=== PATIENT | female | born 1935 | race Caucasian/White ===

== ENCOUNTER 2022-02-17 13:29 | Outpatient (CLI) | payer MEDICARE, BC | END 2022-02-17 13:30 | disposition home or self-care (01) | LOC: NAV RAD 13:29 | PROVIDERS: ATTEND Family Medicine | DX: M25.551 Pain in right hip (principal) | CPT/HCPCS: 72170 ==

== ENCOUNTER 2022-08-17 15:28 | Inpatient (IN) | payer MEDICARE, BC ==
[2022-08-17] MEDS ORDERED: HumaLOG 300 UNITS/3 ML VIAL SC PRN (19:05)
[2022-08-17] MEDS ORDERED: Glucagon 1 MG/ML KIT IM PRN (19:05)
[2022-08-17] MEDS ORDERED: Dextrose 50% Abboject 50 ML SYRINGE SLOW IVP PRN (19:05)
[2022-08-17] MEDS: Atorvastatin Calcium 10 MG TAB PO SCH (21:26)
[2022-08-17] MEDS: Gabapentin 100 MG CAP PO SCH (21:26)
[2022-08-17] MEDS: Aspirin 81 mg Enteric Coated Tablet PO SCH (21:26)
[2022-08-17] MEDS: Losartan Potassium 50 MG TAB PO SCH (21:26)
[2022-08-18] MEDS: traMADol HCl 50 MG TAB PO SCH ×4 (00:14→16:56)
[2022-08-18] MEDS: Acetaminophen 500 MG TAB PO SCH ×4 (00:15→16:57)
[2022-08-18] MEDS: HumaLOG 300 UNITS/3 ML VIAL SC PRN ×3 (06:02→16:58)
[2022-08-18 06:17] LABS: #Basophils 0.1 thou/uL (0.0-0.2); #Eosinphils 0.3 thou/uL (0.0-0.7); #Lymphocytes 1.7 thou/uL (1.20-3.40); #Neutrophils 10.1 thou/uL (1.40-6.50); %Basophils 0.4 % (0.0-1.0); %Eosinophils 2.4 % (0.0-10.0); %Lymphocytes 12.9 % (21.0-51.0); %Monocytes 7.8 % (0.0-10.0); %Neutrophils 76.6 % (42.0-75.0); Hemoglobin 9.7 g/dL (12.0-16.0); Mean Corpuscular HGB CONC 32.4 g/dL (32.0-36.0); Mean Corpuscular Hemoglobin 29.6 pg (27.0-31.0); Mean Corpuscular Volume 91.4 fl (78.0-98.0); Mean Platelet Volume 7.4 fL (7.4-10.4); Platelet Count 172 10x3/uL (130-400); RBC Distribution Width 13.8 % (11.5-14.5); Red Blood Cell (RBC) Count 3.29 mill/uL (4.20-5.40); White Blood Cell (WBC) Count 13.2 10x3/uL (4.8-10.8)
[2022-08-18 06:30] LABS: ALT (SGPT) Less than 7 U/L (8-55); AST (SGOT) 11 U/L (5-34); Albumin 3.3 g/dL (3.4-4.8); Alkaline Phosphatase 46 U/L (40-110); Anion Gap 12 mmol/L (10-20); BUN (Urea Nitrogen) 21 mg/dL (9.8-20.1); Bilirubin, Total 0.6 mg/dL (0.2-1.2); Calc. Creatinine Clearance 52 mL/min (70-130); Calcium 8.7 mg/dL (7.8-10.44); Carbon Dioxide 25 mmol/L (23-31); Chloride 103 mmol/L (98-107); Estimated GFR 67; Glucose 185 mg/dL (83-110); Potassium 4.5 mmol/L (3.5-5.1); Protein, Total 5.3 g/dL (5.8-8.1); Sodium 135 mmol/L (136-145)
[2022-08-18] MEDS: Spironolactone 25 MG TAB PO SCH (08:23)
[2022-08-18] MEDS: cloNIDine 0.1 MG TAB PO PRN (08:23)
[2022-08-18] MEDS: Hydrochlorothiazide 25 MG TAB PO SCH (08:23)
[2022-08-18] MEDS: Aspirin 81 mg Enteric Coated Tablet PO SCH ×2 (08:24→21:14)
[2022-08-18] MEDS: Gabapentin 100 MG CAP PO SCH ×3 (08:24→21:14)
[2022-08-18] MEDS: metFORMIN 500 MG TAB PO SCH ×2 (08:25→16:56)
[2022-08-18] MEDS ORDERED: Amlodipine 5 MG TAB PO SCH (09:00)
[2022-08-18] MEDS: Iron Polysaccharides Complex 150 MG CAP PO SCH ×2 (10:06→13:48)
[2022-08-18] MEDS ORDERED: Ibuprofen 400 MG TAB PO PRN (13:59)
[2022-08-18] MEDS: Ibuprofen 200 MG TAB PO PRN ×2 (15:13→21:11)
[2022-08-18] MEDS: Losartan Potassium 50 MG TAB PO SCH (21:13)
[2022-08-18] MEDS: Atorvastatin Calcium 10 MG TAB PO SCH (21:13)
[2022-08-19] MEDS: Senokot S 8.6-50 MG TAB PO PRN (00:16)
[2022-08-19] MEDS: traMADol HCl 50 MG TAB PO SCH ×4 (00:16→17:29)
[2022-08-19] MEDS: Acetaminophen 500 MG TAB PO SCH ×4 (00:17→17:30)
[2022-08-19] MEDS: metFORMIN 500 MG TAB PO SCH ×2 (08:50→17:30)
[2022-08-19] MEDS: Aspirin 81 mg Enteric Coated Tablet PO SCH ×2 (08:51→21:01)
[2022-08-19] MEDS: Hydrochlorothiazide 25 MG TAB PO SCH (08:51)
[2022-08-19] MEDS: Spironolactone 25 MG TAB PO SCH (08:51)
[2022-08-19] MEDS: Amlodipine 10 MG TAB PO SCH (08:51)
[2022-08-19] MEDS: Gabapentin 100 MG CAP PO SCH ×3 (08:51→20:59)
[2022-08-19] MEDS: Iron Polysaccharides Complex 150 MG CAP PO SCH (08:51)
[2022-08-19] MEDS: Bisacodyl 5 MG TAB PO PRN (08:57)
[2022-08-19] MEDS: Ibuprofen 200 MG TAB PO PRN (10:32)
[2022-08-19] MEDS: cloNIDine 0.1 MG TAB PO PRN (10:59)
[2022-08-19] MEDS: HumaLOG 300 UNITS/3 ML VIAL SC PRN (12:15)
[2022-08-19] MEDS: Cyclobenzaprine 10 MG TAB PO PRN (14:07)
[2022-08-19] MEDS: Atorvastatin Calcium 10 MG TAB PO SCH (20:59)
[2022-08-19] MEDS: Losartan Potassium 50 MG TAB PO SCH (21:01)
[2022-08-20] MEDS: Acetaminophen 500 MG TAB PO SCH ×4 (00:23→17:24)
[2022-08-20] MEDS: traMADol HCl 50 MG TAB PO SCH ×4 (00:24→17:24)
[2022-08-20] MEDS: Ibuprofen 200 MG TAB PO PRN ×2 (07:27→15:12)
[2022-08-20] MEDS: Gabapentin 100 MG CAP PO SCH ×3 (08:39→21:31)
[2022-08-20] MEDS: Iron Polysaccharides Complex 150 MG CAP PO SCH (08:39)
[2022-08-20] MEDS: Amlodipine 10 MG TAB PO SCH (08:40)
[2022-08-20] MEDS: metFORMIN 500 MG TAB PO SCH ×2 (08:40→17:25)
[2022-08-20] MEDS: Aspirin 81 mg Enteric Coated Tablet PO SCH ×2 (08:40→21:30)
[2022-08-20] MEDS: Hydrochlorothiazide 25 MG TAB PO SCH (08:40)
[2022-08-20] MEDS: Spironolactone 25 MG TAB PO SCH (08:40)
[2022-08-20] MEDS: HumaLOG 300 UNITS/3 ML VIAL SC PRN (11:06)
[2022-08-20] MEDS: Atorvastatin Calcium 10 MG TAB PO SCH (21:30)
[2022-08-20] MEDS: Losartan Potassium 50 MG TAB PO SCH (21:30)
[2022-08-21] MEDS: traMADol HCl 50 MG TAB PO SCH ×5 (01:21→23:50)
[2022-08-21] MEDS: Acetaminophen 500 MG TAB PO SCH ×5 (01:22→23:49)
[2022-08-21] MEDS: Spironolactone 25 MG TAB PO SCH (08:26)
[2022-08-21] MEDS: metFORMIN 500 MG TAB PO SCH ×2 (08:26→17:05)
[2022-08-21] MEDS: Hydrochlorothiazide 25 MG TAB PO SCH (08:26)
[2022-08-21] MEDS: Aspirin 81 mg Enteric Coated Tablet PO SCH ×2 (08:26→20:58)
[2022-08-21] MEDS: Amlodipine 10 MG TAB PO SCH (08:26)
[2022-08-21] MEDS: Gabapentin 100 MG CAP PO SCH ×3 (08:26→20:58)
[2022-08-21] MEDS: Iron Polysaccharides Complex 150 MG CAP PO SCH (08:26)
[2022-08-21] MEDS: HumaLOG 300 UNITS/3 ML VIAL SC PRN ×2 (11:23→16:34)
[2022-08-21] MEDS: Senokot S 8.6-50 MG TAB PO PRN (13:22)
[2022-08-21] MEDS: Ondansetron ODT 4 MG TAB SL PRN (14:12)
[2022-08-21] MEDS: Losartan Potassium 50 MG TAB PO SCH (20:57)
[2022-08-21] MEDS: Atorvastatin Calcium 10 MG TAB PO SCH (20:58)
[2022-08-22] MEDS: Acetaminophen 500 MG TAB PO SCH ×4 (05:31→23:45)
[2022-08-22] MEDS: traMADol HCl 50 MG TAB PO SCH ×4 (05:32→23:46)
[2022-08-22] MEDS ORDERED: Alendronate Sodium 70 mg Tablet PO SCH (06:00)
[2022-08-22] MEDS: Amlodipine 10 MG TAB PO SCH (09:58)
[2022-08-22] MEDS: Gabapentin 100 MG CAP PO SCH ×3 (09:59→20:47)
[2022-08-22] MEDS: metFORMIN 500 MG TAB PO SCH ×2 (09:59→17:27)
[2022-08-22] MEDS: Spironolactone 25 MG TAB PO SCH (10:00)
[2022-08-22] MEDS: Hydrochlorothiazide 25 MG TAB PO SCH (10:00)
[2022-08-22] MEDS: Aspirin 81 mg Enteric Coated Tablet PO SCH ×2 (10:00→20:49)
[2022-08-22] MEDS: Iron Polysaccharides Complex 150 MG CAP PO SCH (10:00)
[2022-08-22] MEDS: Ibuprofen 200 MG TAB PO PRN (10:07)
[2022-08-22] MEDS: Losartan Potassium 50 MG TAB PO SCH (20:47)
[2022-08-22] MEDS: Atorvastatin Calcium 10 MG TAB PO SCH (20:49)
[2022-08-23 05:25] LABS: #Basophils 0.1 thou/uL (0.0-0.2); #Eosinphils 0.3 thou/uL (0.0-0.7); #Lymphocytes 1.9 thou/uL (1.20-3.40); #Neutrophils 4.9 thou/uL (1.40-6.50); %Eosinophils 4.2 % (0.0-10.0); %Lymphocytes 23.1 % (21.0-51.0); %Monocytes 12.4 % (0.0-10.0); %Neutrophils 59.3 % (42.0-75.0); Mean Corpuscular HGB CONC 31.8 g/dL (32.0-36.0); Mean Corpuscular Volume 94.4 fl (78.0-98.0); Platelet Count 228 10x3/uL (130-400); RBC Distribution Width 15.8 % (11.5-14.5); Red Blood Cell (RBC) Count 2.98 mill/uL (4.20-5.40); White Blood Cell (WBC) Count 8.2 10x3/uL (4.8-10.8)
[2022-08-23 05:35] LABS: Anion Gap 14 mmol/L (10-20); BUN (Urea Nitrogen) 44 mg/dL (9.8-20.1); Calc. Creatinine Clearance 37 mL/min (70-130); Calcium 9.2 mg/dL (7.8-10.44); Carbon Dioxide 22 mmol/L (23-31); Chloride 105 mmol/L (98-107); Estimated GFR 44; Glucose 92 mg/dL (83-110); Potassium 5.1 mmol/L (3.5-5.1); Sodium 136 mmol/L (136-145)
[2022-08-23] MEDS: Acetaminophen 500 MG TAB PO SCH ×3 (05:39→17:39)
[2022-08-23] MEDS: traMADol HCl 50 MG TAB PO SCH ×3 (05:39→17:38)
[2022-08-23] MEDS: Iron Polysaccharides Complex 150 MG CAP PO SCH (08:45)
[2022-08-23] MEDS: Gabapentin 100 MG CAP PO SCH ×3 (08:45→21:28)
[2022-08-23] MEDS: metFORMIN 500 MG TAB PO SCH ×2 (08:45→17:39)
[2022-08-23] MEDS: Amlodipine 10 MG TAB PO SCH (08:47)
[2022-08-23] MEDS: Hydrochlorothiazide 25 MG TAB PO SCH (08:47)
[2022-08-23] MEDS: Spironolactone 25 MG TAB PO SCH (08:47)
[2022-08-23] MEDS: Aspirin 81 mg Enteric Coated Tablet PO SCH ×2 (08:47→21:28)
[2022-08-23] MEDS: Ibuprofen 200 MG TAB PO PRN (10:50)
[2022-08-23] MEDS: HumaLOG 300 UNITS/3 ML VIAL SC PRN (11:52)
[2022-08-23] MEDS: Senokot S 8.6-50 MG TAB PO PRN (11:57)
[2022-08-23] MEDS: Cyclobenzaprine 10 MG TAB PO PRN (14:33)
[2022-08-23] MEDS: Losartan Potassium 50 MG TAB PO SCH (21:27)
[2022-08-23] MEDS: Atorvastatin Calcium 10 MG TAB PO SCH (21:28)
[2022-08-24] MEDS: Acetaminophen 500 MG TAB PO SCH ×4 (00:12→17:22)
[2022-08-24] MEDS: traMADol HCl 50 MG TAB PO SCH ×4 (00:13→17:20)
[2022-08-24] MEDS: Iron Polysaccharides Complex 150 MG CAP PO SCH (08:27)
[2022-08-24] MEDS: Gabapentin 100 MG CAP PO SCH ×3 (08:27→20:52)
[2022-08-24] MEDS: metFORMIN 500 MG TAB PO SCH ×2 (08:27→17:25)
[2022-08-24] MEDS: Amlodipine 10 MG TAB PO SCH (08:29)
[2022-08-24] MEDS: Aspirin 81 mg Enteric Coated Tablet PO SCH ×2 (08:29→20:51)
[2022-08-24] MEDS: Hydrochlorothiazide 25 MG TAB PO SCH (08:29)
[2022-08-24] MEDS: Spironolactone 25 MG TAB PO SCH (08:29)
[2022-08-24] MEDS: Ibuprofen 200 MG TAB PO PRN (08:32)
[2022-08-24] MEDS: Ondansetron ODT 4 MG TAB SL PRN (10:57)
[2022-08-24] MEDS: HumaLOG 300 UNITS/3 ML VIAL SC PRN (12:14)
[2022-08-24] MEDS: Cyclobenzaprine 10 MG TAB PO PRN (15:53)
[2022-08-24] MEDS: Losartan Potassium 50 MG TAB PO SCH (20:51)
[2022-08-24] MEDS: Atorvastatin Calcium 10 MG TAB PO SCH (20:51)
[2022-08-25] MEDS: Acetaminophen 500 MG TAB PO SCH ×2 (00:14→06:24)
[2022-08-25] MEDS: traMADol HCl 50 MG TAB PO SCH ×5 (00:14→23:43)
[2022-08-25] MEDS: Ondansetron ODT 4 MG TAB SL PRN (08:10)
[2022-08-25] MEDS: Spironolactone 25 MG TAB PO SCH (08:27)
[2022-08-25] MEDS: Iron Polysaccharides Complex 150 MG CAP PO SCH (08:28)
[2022-08-25] MEDS: metFORMIN 500 MG TAB PO SCH ×2 (08:28→16:16)
[2022-08-25] MEDS: Hydrochlorothiazide 25 MG TAB PO SCH (08:28)
[2022-08-25] MEDS: Aspirin 81 mg Enteric Coated Tablet PO SCH ×2 (08:28→20:27)
[2022-08-25] MEDS: Amlodipine 10 MG TAB PO SCH (08:28)
[2022-08-25] MEDS: Gabapentin 100 MG CAP PO SCH ×3 (08:29→20:27)
[2022-08-25] MEDS: HYDROcodone/Acetaminophen 5/325 mg Tablet PO PRN (08:35)
[2022-08-25] MEDS: Ibuprofen 200 MG TAB PO PRN (11:04)
[2022-08-25] MEDS: Cyclobenzaprine 10 MG TAB PO PRN (11:05)
[2022-08-25] MEDS: HumaLOG 300 UNITS/3 ML VIAL SC PRN (12:10)
[2022-08-25] MEDS: Atorvastatin Calcium 10 MG TAB PO SCH (20:27)
[2022-08-25] MEDS: Losartan Potassium 50 MG TAB PO SCH (20:27)
[2022-08-26] MEDS: traMADol HCl 50 MG TAB PO SCH ×4 (05:41→23:40)
[2022-08-26] MEDS: Aspirin 81 mg Enteric Coated Tablet PO SCH ×2 (09:11→20:21)
[2022-08-26] MEDS: Spironolactone 25 MG TAB PO SCH (09:11)
[2022-08-26] MEDS: Amlodipine 10 MG TAB PO SCH (09:12)
[2022-08-26] MEDS: Iron Polysaccharides Complex 150 MG CAP PO SCH (09:12)
[2022-08-26] MEDS: metFORMIN 500 MG TAB PO SCH ×2 (09:12→17:02)
[2022-08-26] MEDS: Gabapentin 100 MG CAP PO SCH ×3 (09:13→20:19)
[2022-08-26] MEDS: Hydrochlorothiazide 25 MG TAB PO SCH (09:13)
[2022-08-26] MEDS: Ibuprofen 200 MG TAB PO PRN (09:16)
[2022-08-26] MEDS: HYDROcodone/Acetaminophen 5/325 mg Tablet PO PRN ×2 (09:30→15:16)
[2022-08-26] MEDS: Losartan Potassium 50 MG TAB PO SCH (20:19)
[2022-08-26] MEDS: Atorvastatin Calcium 10 MG TAB PO SCH (20:19)
[2022-08-27] MEDS: traMADol HCl 50 MG TAB PO SCH ×4 (05:29→23:39)
[2022-08-27] MEDS: Aspirin 81 mg Enteric Coated Tablet PO SCH ×2 (07:43→20:30)
[2022-08-27] MEDS: Hydrochlorothiazide 25 MG TAB PO SCH (07:43)
[2022-08-27] MEDS: Spironolactone 25 MG TAB PO SCH (07:43)
[2022-08-27] MEDS: Gabapentin 100 MG CAP PO SCH ×3 (07:44→20:30)
[2022-08-27] MEDS: Amlodipine 10 MG TAB PO SCH (07:44)
[2022-08-27] MEDS: Iron Polysaccharides Complex 150 MG CAP PO SCH (07:45)
[2022-08-27] MEDS: metFORMIN 500 MG TAB PO SCH ×2 (07:47→17:19)
[2022-08-27] MEDS: HumaLOG 300 UNITS/3 ML VIAL SC PRN (11:56)
[2022-08-27] MEDS: Cyclobenzaprine 10 MG TAB PO PRN (13:27)
[2022-08-27] MEDS: HYDROcodone/Acetaminophen 5/325 mg Tablet PO PRN (14:23)
[2022-08-27] MEDS: Atorvastatin Calcium 10 MG TAB PO SCH (20:30)
[2022-08-27] MEDS: Losartan Potassium 50 MG TAB PO SCH (20:30)
[2022-08-28] MEDS: traMADol HCl 50 MG TAB PO SCH ×4 (05:31→23:48)
[2022-08-28] MEDS: Iron Polysaccharides Complex 150 MG CAP PO SCH (07:27)
[2022-08-28] MEDS: Spironolactone 25 MG TAB PO SCH (07:28)
[2022-08-28] MEDS: metFORMIN 500 MG TAB PO SCH ×2 (07:28→17:30)
[2022-08-28] MEDS: Aspirin 81 mg Enteric Coated Tablet PO SCH ×2 (07:28→20:30)
[2022-08-28] MEDS: Amlodipine 10 MG TAB PO SCH (07:30)
[2022-08-28] MEDS: Gabapentin 100 MG CAP PO SCH ×3 (07:31→20:30)
[2022-08-28] MEDS: Hydrochlorothiazide 25 MG TAB PO SCH (07:31)
[2022-08-28] MEDS: HYDROcodone/Acetaminophen 5/325 mg Tablet PO PRN (13:20)
[2022-08-28] MEDS: Cyclobenzaprine 10 MG TAB PO PRN (14:37)
[2022-08-28] MEDS: Losartan Potassium 50 MG TAB PO SCH (20:30)
[2022-08-28] MEDS: Atorvastatin Calcium 10 MG TAB PO SCH (20:30)
[2022-08-29] MEDS: traMADol HCl 50 MG TAB PO SCH ×4 (05:14→23:59)
[2022-08-29] MEDS: Senokot S 8.6-50 MG TAB PO PRN (08:12)
[2022-08-29] MEDS: Aspirin 81 mg Enteric Coated Tablet PO SCH ×2 (08:13→20:15)
[2022-08-29] MEDS: Iron Polysaccharides Complex 150 MG CAP PO SCH (08:13)
[2022-08-29] MEDS: Gabapentin 100 MG CAP PO SCH ×3 (08:13→20:17)
[2022-08-29] MEDS: Hydrochlorothiazide 25 MG TAB PO SCH (08:14)
[2022-08-29] MEDS: Spironolactone 25 MG TAB PO SCH (08:14)
[2022-08-29] MEDS: metFORMIN 500 MG TAB PO SCH ×2 (08:14→17:17)
[2022-08-29] MEDS: Amlodipine 10 MG TAB PO SCH (08:14)
[2022-08-29] MEDS: Ibuprofen 200 MG TAB PO PRN (14:59)
[2022-08-29] MEDS: Cyclobenzaprine 10 MG TAB PO PRN (14:59)
[2022-08-29] MEDS: HYDROcodone/Acetaminophen 5/325 mg Tablet PO PRN (20:15)
[2022-08-29] MEDS: Losartan Potassium 50 MG TAB PO SCH (20:15)
[2022-08-29] MEDS: Atorvastatin Calcium 10 MG TAB PO SCH (20:15)
[2022-08-30] MEDS: traMADol HCl 50 MG TAB PO SCH ×3 (07:42→17:05)
[2022-08-30] MEDS: HYDROcodone/Acetaminophen 5/325 mg Tablet PO PRN ×2 (07:42→14:51)
[2022-08-30] MEDS: metFORMIN 500 MG TAB PO SCH ×2 (07:44→17:05)
[2022-08-30] MEDS: Aspirin 81 mg Enteric Coated Tablet PO SCH ×2 (07:45→20:44)
[2022-08-30] MEDS: Spironolactone 25 MG TAB PO SCH (07:45)
[2022-08-30] MEDS: Gabapentin 100 MG CAP PO SCH ×3 (07:45→20:42)
[2022-08-30] MEDS: Iron Polysaccharides Complex 150 MG CAP PO SCH (07:45)
[2022-08-30] MEDS: Senokot S 8.6-50 MG TAB PO PRN ×2 (07:45→20:46)
[2022-08-30] MEDS: Hydrochlorothiazide 25 MG TAB PO SCH (07:45)
[2022-08-30] MEDS: Amlodipine 10 MG TAB PO SCH (07:50)
[2022-08-30] MEDS: Cyclobenzaprine 10 MG TAB PO PRN (15:39)
[2022-08-30] MEDS: Losartan Potassium 50 MG TAB PO SCH (20:43)
[2022-08-30] MEDS: Atorvastatin Calcium 10 MG TAB PO SCH (20:44)
[2022-08-31] MEDS: traMADol HCl 50 MG TAB PO SCH ×4 (00:02→17:25)
[2022-08-31 06:04] LABS: #Basophils 0.1 thou/uL (0.0-0.2); #Eosinphils 0.3 thou/uL (0.0-0.7); #Lymphocytes 1.9 thou/uL (1.20-3.40); #Monocytes 0.9 thou/uL (0.11-0.59); #Neutrophils 5.2 thou/uL (1.40-6.50); %Eosinophils 3.5 % (0.0-10.0); %Lymphocytes 22.4 % (21.0-51.0); %Monocytes 10.7 % (0.0-10.0); %Neutrophils 62.4 % (42.0-75.0); Hemoglobin 9.7 g/dL (12.0-16.0); Mean Corpuscular Hemoglobin 30.4 pg (27.0-31.0); Mean Corpuscular Volume 95.2 fl (78.0-98.0); Mean Platelet Volume 6.3 fL (7.4-10.4); Platelet Count 384 10x3/uL (130-400); Red Blood Cell (RBC) Count 3.18 mill/uL (4.20-5.40); White Blood Cell (WBC) Count 8.3 10x3/uL (4.8-10.8)
[2022-08-31 06:19] LABS: Anion Gap 14 mmol/L (10-20); BUN (Urea Nitrogen) 57 mg/dL (9.8-20.1); Calc. Creatinine Clearance 29 mL/min (70-130); Calcium 9.9 mg/dL (7.8-10.44); Carbon Dioxide 22 mmol/L (23-31); Chloride 102 mmol/L (98-107); Estimated GFR 33; Glucose 89 mg/dL (83-110); Potassium 5.7 mmol/L (3.5-5.1); Sodium 132 mmol/L (136-145)
[2022-08-31] MEDS: Spironolactone 25 MG TAB PO SCH (08:39)
[2022-08-31] MEDS: Gabapentin 100 MG CAP PO SCH ×3 (08:40→20:29)
[2022-08-31] MEDS: Iron Polysaccharides Complex 150 MG CAP PO SCH (08:40)
[2022-08-31] MEDS: Hydrochlorothiazide 25 MG TAB PO SCH (08:40)
[2022-08-31] MEDS: metFORMIN 500 MG TAB PO SCH ×2 (08:40→17:25)
[2022-08-31] MEDS: Amlodipine 10 MG TAB PO SCH (08:41)
[2022-08-31] MEDS: Aspirin 81 mg Enteric Coated Tablet PO SCH ×2 (08:41→20:29)
[2022-08-31] MEDS: Bisacodyl 10 MG SUPP PR PRN (11:15)
[2022-08-31] MEDS: HYDROcodone/Acetaminophen 5/325 mg Tablet PO PRN (12:11)
[2022-08-31] MEDS: Cyclobenzaprine 10 MG TAB PO PRN (15:11)
[2022-08-31] MEDS: Ibuprofen 200 MG TAB PO PRN (15:11)
[2022-08-31] MEDS: Atorvastatin Calcium 10 MG TAB PO SCH (20:29)
[2022-08-31] MEDS: Losartan Potassium 50 MG TAB PO SCH (20:29)
[2022-09-01] MEDS: traMADol HCl 50 MG TAB PO SCH ×5 (00:52→23:33)
[2022-09-01 06:10] LABS: Anion Gap 13 mmol/L (10-20); BUN (Urea Nitrogen) 60 mg/dL (9.8-20.1); Calc. Creatinine Clearance 30 mL/min (70-130); Calcium 9.4 mg/dL (7.8-10.44); Carbon Dioxide 22 mmol/L (23-31); Chloride 102 mmol/L (98-107); Estimated GFR 35; Sodium 131 mmol/L (136-145)
[2022-09-01 06:13] LABS: Glucose 51 mg/dL (83-110)
[2022-09-01] MEDS: HYDROcodone/Acetaminophen 5/325 mg Tablet PO PRN ×2 (08:18→15:04)
[2022-09-01] MEDS: metFORMIN 500 MG TAB PO SCH ×2 (08:19→16:59)
[2022-09-01] MEDS: Spironolactone 25 MG TAB PO SCH (08:19)
[2022-09-01] MEDS: Aspirin 81 mg Enteric Coated Tablet PO SCH ×2 (08:19→20:46)
[2022-09-01] MEDS: Iron Polysaccharides Complex 150 MG CAP PO SCH (08:19)
[2022-09-01] MEDS: Amlodipine 10 MG TAB PO SCH (08:20)
[2022-09-01] MEDS: Hydrochlorothiazide 25 MG TAB PO SCH (08:20)
[2022-09-01] MEDS: Gabapentin 100 MG CAP PO SCH ×3 (08:20→20:46)
[2022-09-01] MEDS: Ondansetron ODT 4 MG TAB SL PRN (17:59)
[2022-09-01] MEDS: Atorvastatin Calcium 10 MG TAB PO SCH (20:46)
[2022-09-01] MEDS: Losartan Potassium 50 MG TAB PO SCH (20:46)
[2022-09-02] MEDS: traMADol HCl 50 MG TAB PO SCH ×4 (05:30→23:54)
[2022-09-02 06:03] LABS: Anion Gap 12 mmol/L (10-20); BUN (Urea Nitrogen) 53 mg/dL (9.8-20.1); Calc. Creatinine Clearance 35 mL/min (70-130); Calcium 9.3 mg/dL (7.8-10.44); Carbon Dioxide 25 mmol/L (23-31); Chloride 102 mmol/L (98-107); Estimated GFR 43; Glucose 72 mg/dL (83-110); Potassium 5.3 mmol/L (3.5-5.1); Sodium 134 mmol/L (136-145)
[2022-09-02] MEDS: metFORMIN 500 MG TAB PO SCH ×2 (07:52→17:31)
[2022-09-02] MEDS: Amlodipine 10 MG TAB PO SCH (07:52)
[2022-09-02] MEDS: Gabapentin 100 MG CAP PO SCH ×3 (07:52→20:52)
[2022-09-02] MEDS: Hydrochlorothiazide 25 MG TAB PO SCH (07:52)
[2022-09-02] MEDS: Spironolactone 25 MG TAB PO SCH (07:54)
[2022-09-02] MEDS: Iron Polysaccharides Complex 150 MG CAP PO SCH (07:54)
[2022-09-02] MEDS: Aspirin 81 mg Enteric Coated Tablet PO SCH ×2 (07:54→20:52)
[2022-09-02] MEDS: HYDROcodone/Acetaminophen 5/325 mg Tablet PO PRN (10:06)
[2022-09-02] MEDS: HumaLOG 300 UNITS/3 ML VIAL SC PRN (11:37)
[2022-09-02] MEDS: Losartan Potassium 50 MG TAB PO SCH (20:52)
[2022-09-02] MEDS: Atorvastatin Calcium 10 MG TAB PO SCH (20:53)
[2022-09-03 05:52] LABS: Anion Gap 13 mmol/L (10-20); BUN (Urea Nitrogen) 48 mg/dL (9.8-20.1); Calc. Creatinine Clearance 37 mL/min (70-130); Calcium 9.3 mg/dL (7.8-10.44); Carbon Dioxide 26 mmol/L (23-31); Chloride 101 mmol/L (98-107); Estimated GFR 45; Glucose 103 mg/dL (83-110); Potassium 4.7 mmol/L (3.5-5.1); Sodium 135 mmol/L (136-145)
[2022-09-03] MEDS: traMADol HCl 50 MG TAB PO SCH ×3 (06:05→17:47)
[2022-09-03] MEDS: metFORMIN 500 MG TAB PO SCH ×2 (08:37→17:47)
[2022-09-03] MEDS: Amlodipine 10 MG TAB PO SCH (08:37)
[2022-09-03] MEDS: Aspirin 81 mg Enteric Coated Tablet PO SCH ×2 (08:38→20:35)
[2022-09-03] MEDS: Gabapentin 100 MG CAP PO SCH ×3 (08:38→20:35)
[2022-09-03] MEDS: Hydrochlorothiazide 25 MG TAB PO SCH (08:38)
[2022-09-03] MEDS: Iron Polysaccharides Complex 150 MG CAP PO SCH (08:38)
[2022-09-03] MEDS: Spironolactone 25 MG TAB PO SCH (08:38)
[2022-09-03] MEDS: HumaLOG 300 UNITS/3 ML VIAL SC PRN (11:47)
[2022-09-03] MEDS: Ondansetron ODT 4 MG TAB SL PRN (17:00)
[2022-09-03] MEDS: Losartan Potassium 50 MG TAB PO SCH (20:35)
[2022-09-03] MEDS: Atorvastatin Calcium 10 MG TAB PO SCH (20:36)
[2022-09-03] MEDS: Senokot S 8.6-50 MG TAB PO PRN (20:36)
[2022-09-04] MEDS: traMADol HCl 50 MG TAB PO SCH ×4 (05:23→17:34)
[2022-09-04] MEDS: Gabapentin 100 MG CAP PO SCH ×3 (08:14→20:42)
[2022-09-04] MEDS: Spironolactone 25 MG TAB PO SCH (08:14)
[2022-09-04] MEDS: metFORMIN 500 MG TAB PO SCH ×2 (08:14→17:35)
[2022-09-04] MEDS: Iron Polysaccharides Complex 150 MG CAP PO SCH (08:14)
[2022-09-04] MEDS: Aspirin 81 mg Enteric Coated Tablet PO SCH ×2 (08:15→20:43)
[2022-09-04] MEDS: Hydrochlorothiazide 25 MG TAB PO SCH (08:15)
[2022-09-04] MEDS: Amlodipine 10 MG TAB PO SCH (08:15)
[2022-09-04] MEDS: HumaLOG 300 UNITS/3 ML VIAL SC PRN (11:48)
[2022-09-04] MEDS: Bisacodyl 5 MG TAB PO PRN (13:42)
[2022-09-04] MEDS: Ondansetron ODT 4 MG TAB SL PRN (17:08)
[2022-09-04] MEDS: Losartan Potassium 50 MG TAB PO SCH (20:42)
[2022-09-04] MEDS: Atorvastatin Calcium 10 MG TAB PO SCH (20:43)
[2022-09-05] MEDS: traMADol HCl 50 MG TAB PO SCH ×4 (00:23→17:13)
[2022-09-05] MEDS: Bisacodyl 10 MG SUPP PR PRN (05:20)
[2022-09-05] MEDS: Spironolactone 25 MG TAB PO SCH (08:46)
[2022-09-05] MEDS: Gabapentin 100 MG CAP PO SCH ×3 (08:46→21:32)
[2022-09-05] MEDS: Hydrochlorothiazide 25 MG TAB PO SCH (08:46)
[2022-09-05] MEDS: metFORMIN 500 MG TAB PO SCH ×2 (08:47→17:13)
[2022-09-05] MEDS: Aspirin 81 mg Enteric Coated Tablet PO SCH ×2 (08:47→21:33)
[2022-09-05] MEDS: Amlodipine 10 MG TAB PO SCH (08:47)
[2022-09-05] MEDS: Iron Polysaccharides Complex 150 MG CAP PO SCH (08:47)
[2022-09-05] MEDS: Ondansetron ODT 4 MG TAB SL PRN (10:54)
[2022-09-05] MEDS: HumaLOG 300 UNITS/3 ML VIAL SC PRN ×2 (10:56→16:45)
[2022-09-05] MEDS: Atorvastatin Calcium 10 MG TAB PO SCH (21:33)
[2022-09-05] MEDS: Losartan Potassium 50 MG TAB PO SCH (21:33)
[2022-09-05] MEDS: Docusate 100 MG CAP PO SCH (21:34)
[2022-09-06] MEDS: traMADol HCl 50 MG TAB PO SCH ×6 (00:33→23:59)
[2022-09-06 05:28] LABS: #Basophils 0.1 thou/uL (0.0-0.2); #Eosinphils 0.3 thou/uL (0.0-0.7); #Lymphocytes 2.3 thou/uL (1.20-3.40); #Monocytes 0.8 thou/uL (0.11-0.59); #Neutrophils 3.4 thou/uL (1.40-6.50); %Basophils 1.3 % (0.0-1.0); %Lymphocytes 33.8 % (21.0-51.0); %Monocytes 11.1 % (0.0-10.0); %Neutrophils 48.8 % (42.0-75.0); Hemoglobin 8.6 g/dL (12.0-16.0); Mean Corpuscular HGB CONC 32.6 g/dL (32.0-36.0); Mean Corpuscular Hemoglobin 30.6 pg (27.0-31.0); Mean Platelet Volume 7.2 fL (7.4-10.4); Platelet Count 308 10x3/uL (130-400); RBC Distribution Width 15.1 % (11.5-14.5); Red Blood Cell (RBC) Count 2.82 mill/uL (4.20-5.40); White Blood Cell (WBC) Count 6.9 10x3/uL (4.8-10.8)
[2022-09-06 05:44] LABS: Anion Gap 12 mmol/L (10-20); BUN (Urea Nitrogen) 41 mg/dL (9.8-20.1); Calc. Creatinine Clearance 29 mL/min (70-130); Calcium 9.4 mg/dL (7.8-10.44); Carbon Dioxide 27 mmol/L (23-31); Chloride 99 mmol/L (98-107); Estimated GFR 35; Glucose 89 mg/dL (83-110); Potassium 4.9 mmol/L (3.5-5.1); Sodium 133 mmol/L (136-145)
[2022-09-06] MEDS: Aspirin 81 mg Enteric Coated Tablet PO SCH ×2 (09:36→20:32)
[2022-09-06] MEDS: Amlodipine 10 MG TAB PO SCH (09:36)
[2022-09-06] MEDS: Iron Polysaccharides Complex 150 MG CAP PO SCH (09:36)
[2022-09-06] MEDS: Hydrochlorothiazide 25 MG TAB PO SCH (09:37)
[2022-09-06] MEDS: metFORMIN 500 MG TAB PO SCH ×2 (09:37→16:10)
[2022-09-06] MEDS: Spironolactone 25 MG TAB PO SCH (09:37)
[2022-09-06] MEDS: Docusate 100 MG CAP PO SCH ×2 (09:37→20:33)
[2022-09-06] MEDS: Gabapentin 100 MG CAP PO SCH ×3 (09:37→20:32)
[2022-09-06] MEDS: HumaLOG 300 UNITS/3 ML VIAL SC PRN ×2 (12:26→16:19)
[2022-09-06] MEDS: Ondansetron ODT 4 MG TAB SL PRN (16:14)
[2022-09-06] MEDS ORDERED: EPOETIN ALFA-EPBX (NON-ESRD) 40,000 UNITS/ML VIAL SC SCH (17:00)
[2022-09-06] MEDS ORDERED: Epoetin 40,000 UNITS/ML VIAL SC SCH (17:00)
[2022-09-06] MEDS: Atorvastatin Calcium 10 MG TAB PO SCH (20:33)
[2022-09-06] MEDS: Losartan Potassium 50 MG TAB PO SCH (20:33)
[2022-09-07] MEDS: traMADol HCl 50 MG TAB PO SCH ×3 (05:22→18:34)
[2022-09-07] MEDS: Senokot S 8.6-50 MG TAB PO PRN (10:11)
[2022-09-07] MEDS: Hydrochlorothiazide 25 MG TAB PO SCH (10:11)
[2022-09-07] MEDS: Docusate 100 MG CAP PO SCH ×2 (10:12→20:28)
[2022-09-07] MEDS: Aspirin 81 mg Enteric Coated Tablet PO SCH ×2 (10:12→20:29)
[2022-09-07] MEDS: Amlodipine 10 MG TAB PO SCH (10:12)
[2022-09-07] MEDS: Gabapentin 100 MG CAP PO SCH ×3 (10:14→20:29)
[2022-09-07] MEDS: Spironolactone 25 MG TAB PO SCH (10:22)
[2022-09-07] MEDS: metFORMIN 500 MG TAB PO SCH ×2 (10:22→18:34)
[2022-09-07] MEDS: Iron Polysaccharides Complex 150 MG CAP PO SCH (10:22)
[2022-09-07] MEDS: HumaLOG 300 UNITS/3 ML VIAL SC PRN (11:54)
[2022-09-07] MEDS: Ondansetron ODT 4 MG TAB SL PRN (14:09)
[2022-09-07] MEDS: Losartan Potassium 50 MG TAB PO SCH (20:28)
[2022-09-07] MEDS: Atorvastatin Calcium 10 MG TAB PO SCH (20:29)
[2022-09-08] MEDS: Ibuprofen 200 MG TAB PO PRN (03:02)
[2022-09-08] MEDS: Bisacodyl 5 MG TAB PO PRN (03:02)
[2022-09-08] MEDS: traMADol HCl 50 MG TAB PO SCH ×5 (06:03→23:53)
[2022-09-08] MEDS: Hydrochlorothiazide 25 MG TAB PO SCH (09:27)
[2022-09-08] MEDS: Spironolactone 25 MG TAB PO SCH (09:27)
[2022-09-08] MEDS: Amlodipine 10 MG TAB PO SCH (09:27)
[2022-09-08] MEDS: Iron Polysaccharides Complex 150 MG CAP PO SCH (09:28)
[2022-09-08] MEDS: Gabapentin 100 MG CAP PO SCH ×3 (09:28→20:10)
[2022-09-08] MEDS: Docusate 100 MG CAP PO SCH ×2 (09:29→20:09)
[2022-09-08] MEDS: metFORMIN 500 MG TAB PO SCH ×2 (09:29→16:23)
[2022-09-08] MEDS: Aspirin 81 mg Enteric Coated Tablet PO SCH ×2 (09:29→20:09)
[2022-09-08] MEDS: HYDROcodone/Acetaminophen 5/325 mg Tablet PO PRN (12:14)
[2022-09-08] MEDS: HumaLOG 300 UNITS/3 ML VIAL SC PRN (12:32)
[2022-09-08] MEDS: Atorvastatin Calcium 10 MG TAB PO SCH (20:09)
[2022-09-08] MEDS: Losartan Potassium 50 MG TAB PO SCH (20:09)
[2022-09-09] MEDS: traMADol HCl 50 MG TAB PO SCH ×3 (05:17→17:04)
[2022-09-09] MEDS: Docusate 100 MG CAP PO SCH ×2 (09:26→20:56)
[2022-09-09] MEDS: Gabapentin 100 MG CAP PO SCH ×3 (09:26→20:56)
[2022-09-09] MEDS: Amlodipine 10 MG TAB PO SCH (09:27)
[2022-09-09] MEDS: Hydrochlorothiazide 25 MG TAB PO SCH (09:27)
[2022-09-09] MEDS: Aspirin 81 mg Enteric Coated Tablet PO SCH ×2 (09:27→20:56)
[2022-09-09] MEDS: Spironolactone 25 MG TAB PO SCH (09:27)
[2022-09-09] MEDS: metFORMIN 500 MG TAB PO SCH ×2 (09:28→16:25)
[2022-09-09] MEDS: Iron Polysaccharides Complex 150 MG CAP PO SCH (09:28)
[2022-09-09] MEDS: HumaLOG 300 UNITS/3 ML VIAL SC PRN ×2 (11:58→16:36)
[2022-09-09] MEDS: Ondansetron ODT 4 MG TAB SL PRN (12:01)
[2022-09-09] MEDS: Senokot S 8.6-50 MG TAB PO PRN (16:39)
[2022-09-09] MEDS: Losartan Potassium 50 MG TAB PO SCH (20:55)
[2022-09-09] MEDS: Atorvastatin Calcium 10 MG TAB PO SCH (20:56)
[2022-09-10] MEDS: traMADol HCl 50 MG TAB PO SCH ×5 (00:44→23:53)
[2022-09-10] MEDS ORDERED: traMADol HCl 50 MG TAB ONE (05:43)
[2022-09-10 06:07] LABS: #Basophils 0.1 thou/uL (0.0-0.2); #Eosinphils 0.3 thou/uL (0.0-0.7); #Lymphocytes 1.8 thou/uL (1.20-3.40); #Monocytes 0.9 thou/uL (0.11-0.59); #Neutrophils 3.9 thou/uL (1.40-6.50); %Basophils 1.5 % (0.0-1.0); %Eosinophils 4.4 % (0.0-10.0); %Lymphocytes 25.4 % (21.0-51.0); %Monocytes 12.2 % (0.0-10.0); %Neutrophils 56.4 % (42.0-75.0); Hemoglobin 8.7 g/dL (12.0-16.0); Mean Corpuscular HGB CONC 31.4 g/dL (32.0-36.0); Mean Corpuscular Hemoglobin 30.2 pg (27.0-31.0); Mean Corpuscular Volume 96.2 fl (78.0-98.0); Mean Platelet Volume 7.8 fL (7.4-10.4); Platelet Count 264 10x3/uL (130-400); RBC Distribution Width 15.9 % (11.5-14.5); Red Blood Cell (RBC) Count 2.89 mill/uL (4.20-5.40)
[2022-09-10 06:16] LABS: Anion Gap 13 mmol/L (10-20); BUN (Urea Nitrogen) 30 mg/dL (9.8-20.1); Calc. Creatinine Clearance 34 mL/min (70-130); Calcium 9.4 mg/dL (7.8-10.44); Carbon Dioxide 24 mmol/L (23-31); Chloride 101 mmol/L (98-107); Estimated GFR 43; Glucose 111 mg/dL (83-110); Potassium 4.6 mmol/L (3.5-5.1); Sodium 133 mmol/L (136-145)
[2022-09-10] MEDS: Docusate 100 MG CAP PO SCH ×2 (11:56→20:33)
[2022-09-10] MEDS: Gabapentin 100 MG CAP PO SCH ×3 (11:56→20:33)
[2022-09-10] MEDS: Amlodipine 10 MG TAB PO SCH (11:57)
[2022-09-10] MEDS: Iron Polysaccharides Complex 150 MG CAP PO SCH (11:57)
[2022-09-10] MEDS: Aspirin 81 mg Enteric Coated Tablet PO SCH ×2 (11:58→20:33)
[2022-09-10] MEDS: Hydrochlorothiazide 25 MG TAB PO SCH (11:58)
[2022-09-10] MEDS: metFORMIN 500 MG TAB PO SCH ×2 (11:58→17:21)
[2022-09-10] MEDS: Spironolactone 25 MG TAB PO SCH (11:58)
[2022-09-10] MEDS: HumaLOG 300 UNITS/3 ML VIAL SC PRN ×2 (12:34→17:21)
[2022-09-10] MEDS: Losartan Potassium 50 MG TAB PO SCH (20:33)
[2022-09-10] MEDS: Atorvastatin Calcium 10 MG TAB PO SCH (20:33)
[2022-09-11] MEDS: traMADol HCl 50 MG TAB PO SCH ×2 (04:05→12:34)
[2022-09-11] MEDS: Docusate 100 MG CAP PO SCH ×2 (08:34→21:07)
[2022-09-11] MEDS: Gabapentin 100 MG CAP PO SCH ×3 (08:34→21:08)
[2022-09-11] MEDS: metFORMIN 500 MG TAB PO SCH ×2 (08:36→16:54)
[2022-09-11] MEDS: Iron Polysaccharides Complex 150 MG CAP PO SCH (08:36)
[2022-09-11] MEDS: Spironolactone 25 MG TAB PO SCH (08:36)
[2022-09-11] MEDS: Amlodipine 10 MG TAB PO SCH (08:36)
[2022-09-11] MEDS: Hydrochlorothiazide 25 MG TAB PO SCH (08:37)
[2022-09-11] MEDS: Aspirin 81 mg Enteric Coated Tablet PO SCH ×2 (08:42→21:08)
[2022-09-11] MEDS: HumaLOG 300 UNITS/3 ML VIAL SC PRN ×2 (12:38→16:54)
[2022-09-11] MEDS ORDERED: traMADol HCl 50 MG TAB PO PRN (15:32)
[2022-09-11] MEDS ORDERED: Ibuprofen 200 MG TAB PO PRN (15:32)
[2022-09-11] MEDS: Atorvastatin Calcium 10 MG TAB PO SCH (21:07)
[2022-09-11] MEDS: Losartan Potassium 50 MG TAB PO SCH (21:07)
[2022-09-12] MEDS: HYDROcodone/Acetaminophen 5/325 mg Tablet PO PRN ×2 (03:25→20:19)
[2022-09-12] MEDS: metFORMIN 500 MG TAB PO SCH ×2 (08:33→17:36)
[2022-09-12] MEDS: Gabapentin 100 MG CAP PO SCH ×3 (08:33→20:18)
[2022-09-12] MEDS: Iron Polysaccharides Complex 150 MG CAP PO SCH (08:33)
[2022-09-12] MEDS: Aspirin 81 mg Enteric Coated Tablet PO SCH ×2 (08:33→20:18)
[2022-09-12] MEDS: Spironolactone 25 MG TAB PO SCH (08:33)
[2022-09-12] MEDS: Amlodipine 10 MG TAB PO SCH (08:33)
[2022-09-12] MEDS: Docusate 100 MG CAP PO SCH ×2 (08:33→20:18)
[2022-09-12] MEDS: Hydrochlorothiazide 25 MG TAB PO SCH (08:34)
[2022-09-12] MEDS: HumaLOG 300 UNITS/3 ML VIAL SC PRN (12:46)
[2022-09-12] MEDS: Atorvastatin Calcium 10 MG TAB PO SCH (20:18)
[2022-09-12] MEDS: Losartan Potassium 50 MG TAB PO SCH (20:18)
[2022-09-13] MEDS: Bisacodyl 5 MG TAB PO PRN (05:37)
[2022-09-13] MEDS: Iron Polysaccharides Complex 150 MG CAP PO SCH (07:43)
[2022-09-13] MEDS: metFORMIN 500 MG TAB PO SCH ×2 (07:43→17:20)
[2022-09-13] MEDS: HYDROcodone/Acetaminophen 5/325 mg Tablet PO PRN ×2 (07:43→20:57)
[2022-09-13] MEDS: Docusate 100 MG CAP PO SCH ×2 (07:43→20:56)
[2022-09-13] MEDS: Aspirin 81 mg Enteric Coated Tablet PO SCH ×2 (07:43→20:56)
[2022-09-13] MEDS: Amlodipine 10 MG TAB PO SCH (07:44)
[2022-09-13] MEDS: Spironolactone 25 MG TAB PO SCH (07:44)
[2022-09-13] MEDS: Hydrochlorothiazide 25 MG TAB PO SCH (07:44)
[2022-09-13] MEDS: Gabapentin 100 MG CAP PO SCH ×3 (07:44→20:56)
[2022-09-13] MEDS: HumaLOG 300 UNITS/3 ML VIAL SC PRN ×2 (12:06→17:22)
[2022-09-13] MEDS: Losartan Potassium 50 MG TAB PO SCH (20:56)
[2022-09-13] MEDS: Atorvastatin Calcium 10 MG TAB PO SCH (20:56)
[2022-09-14 06:18] LABS: Anion Gap 16 mmol/L (10-20); BUN (Urea Nitrogen) 26 mg/dL (9.8-20.1); Calc. Creatinine Clearance 40 mL/min (70-130); Calcium 9.2 mg/dL (7.8-10.44); Carbon Dioxide 21 mmol/L (23-31); Chloride 102 mmol/L (98-107); Estimated GFR 51; Glucose 147 mg/dL (83-110); Magnesium 1.8 mg/dL (1.6-2.6); Potassium 4.2 mmol/L (3.5-5.1); Sodium 135 mmol/L (136-145)
[2022-09-14] MEDS: Aspirin 81 mg Enteric Coated Tablet PO SCH ×2 (07:52→21:23)
[2022-09-14] MEDS: metFORMIN 500 MG TAB PO SCH ×2 (07:52→16:46)
[2022-09-14] MEDS: Spironolactone 25 MG TAB PO SCH (07:52)
[2022-09-14] MEDS: Gabapentin 100 MG CAP PO SCH ×3 (07:53→21:23)
[2022-09-14] MEDS: Iron Polysaccharides Complex 150 MG CAP PO SCH (07:54)
[2022-09-14] MEDS: Docusate 100 MG CAP PO SCH ×2 (07:54→21:23)
[2022-09-14] MEDS: Hydrochlorothiazide 25 MG TAB PO SCH (07:54)
[2022-09-14] MEDS: Amlodipine 10 MG TAB PO SCH (07:54)
[2022-09-14] MEDS: HYDROcodone/Acetaminophen 5/325 mg Tablet PO PRN ×2 (07:58→21:23)
[2022-09-14] MEDS: HumaLOG 300 UNITS/3 ML VIAL SC PRN (11:52)
[2022-09-14] MEDS: Atorvastatin Calcium 10 MG TAB PO SCH (21:23)
[2022-09-14] MEDS: Losartan Potassium 50 MG TAB PO SCH (21:23)
[2022-09-15] MEDS: HumaLOG 300 UNITS/3 ML VIAL SC PRN ×3 (06:21→17:25)
[2022-09-15] MEDS: metFORMIN 500 MG TAB PO SCH ×3 (08:54→17:24)
[2022-09-15] MEDS: Docusate 100 MG CAP PO SCH ×2 (09:00→20:22)
[2022-09-15] MEDS: Gabapentin 100 MG CAP PO SCH ×3 (09:01→20:22)
[2022-09-15] MEDS: Iron Polysaccharides Complex 150 MG CAP PO SCH (09:01)
[2022-09-15] MEDS: Amlodipine 10 MG TAB PO SCH (09:01)
[2022-09-15] MEDS: Aspirin 81 mg Enteric Coated Tablet PO SCH ×2 (09:02→20:22)
[2022-09-15] MEDS: Hydrochlorothiazide 25 MG TAB PO SCH (09:02)
[2022-09-15] MEDS: Spironolactone 25 MG TAB PO SCH (09:02)
[2022-09-15] MEDS ORDERED: Benzocaine/Menthol 1 LOZ LOZ PO PRN (11:55)
[2022-09-15] MEDS: HYDROcodone/Acetaminophen 5/325 mg Tablet PO PRN ×2 (12:28→20:21)
[2022-09-15 15:24] VITALS: BMI 25.0
[2022-09-15] MEDS: Atorvastatin Calcium 10 MG TAB PO SCH (20:22)
[2022-09-15] MEDS: Losartan Potassium 50 MG TAB PO SCH (20:22)
[2022-09-16 07:52] VITALS: BP 144/65; TEMP 97.8
[2022-09-16] MEDS: Amlodipine 10 MG TAB PO SCH (08:17)
[2022-09-16] MEDS: Iron Polysaccharides Complex 150 MG CAP PO SCH (08:17)
[2022-09-16] MEDS: Docusate 100 MG CAP PO SCH (08:17)
[2022-09-16] MEDS: metFORMIN 500 MG TAB PO SCH (08:17)
[2022-09-16] MEDS: Gabapentin 100 MG CAP PO SCH (08:18)
[2022-09-16] MEDS: Hydrochlorothiazide 25 MG TAB PO SCH (08:18)
[2022-09-16] MEDS: Spironolactone 25 MG TAB PO SCH (08:18)
[2022-09-16] MEDS: Aspirin 81 mg Enteric Coated Tablet PO SCH (08:22)
[2022-09-16] MEDS: Ondansetron ODT 4 MG TAB SL PRN (12:15)
== END 2022-09-16 12:25 | disposition home health service (06) | DRG 560 ==
LOC: NAV ACUTE 19:46
PROVIDERS: ADMIT Family Medicine; ATTEND Family Medicine
DX: S72.142D Displaced intertrochanteric fracture of left femur, subsequent encounter for closed fracture with routine healing (principal); N17.9 Acute kidney failure, unspecified; E11.42 Type 2 diabetes mellitus with diabetic polyneuropathy; D50.9 Iron deficiency anemia, unspecified; K21.9 Gastro-esophageal reflux disease without esophagitis; N18.31 Chronic kidney disease, stage 3a; I12.9 Hypertensive chronic kidney disease with stage 1 through stage 4 chronic kidney disease, or unspecified chronic kidney disease; E11.22 Type 2 diabetes mellitus with diabetic chronic kidney disease; M81.0 Age-related osteoporosis without current pathological fracture; E78.5 Hyperlipidemia, unspecified; E87.5 Hyperkalemia; K59.01 Slow transit constipation; E11.40 Type 2 diabetes mellitus with diabetic neuropathy, unspecified; N18.2 Chronic kidney disease, stage 2 (mild); J04.0 Acute laryngitis; Z90.49 Acquired absence of other specified parts of digestive tract; Z88.5 Allergy status to narcotic agent; Z98.890 Other specified postprocedural states
CPT/HCPCS: 36415; 36416; 80048; 80053; 83735; 85025; J0885; J1815; Q0162

== ENCOUNTER 2023-11-05 10:09 | Emergency (ER) | payer MEDICARE, BC ==
[2023-11-05 10:53] LABS: Bilirubin Negative (Negative); Blood, Urine Negative (Negative); Clarity Clear (Clear); Glucose, Urine (Dipstick) Negative (Negative); Ketone, Urine Negative (Negative); Leukocyte Small (Negative); Nitrite Negative (Negative); Protein, Urine (Dipstick) Negative (Neg-Trace); Urobilinogen 0.2 mg/dL (Less than 2); pH, Urine 6.5 (5.0-9.0)
[2023-11-05] MEDS ORDERED: Sodium Chloride 0.9% 1,000 ML ONE (11:03)
[2023-11-05 11:10] LABS: #Basophils 0.1 thou/uL (0.0-0.2); #Eosinphils 0.1 thou/uL (0.0-0.7); #Lymphocytes 1.1 thou/uL (1.20-3.40); #Monocytes 1.1 thou/uL (0.11-0.59); #Neutrophils 10.6 thou/uL (1.40-6.50); %Basophils 0.8 % (0.0-1.0); %Eosinophils 0.4 % (0.0-10.0); %Lymphocytes 8.6 % (21.0-51.0); %Monocytes 8.6 % (0.0-10.0); %Neutrophils 81.6 % (42.0-75.0); Hematocrit 30.7 % (36.0-47.0); Hemoglobin 9.7 g/dL (12.0-16.0); Mean Corpuscular HGB CONC 31.6 g/dL (32.0-36.0); Mean Corpuscular Hemoglobin 29.5 pg (27.0-31.0); Mean Corpuscular Volume 93.1 fl (78.0-98.0); Mean Platelet Volume 9.2 fL (7.4-10.4); Platelet Count 207 10x3/uL (130-400); RBC Distribution Width 13.2 % (11.5-14.5)
[2023-11-05 11:11] LABS: CAUTI Indications for Culture Pelvic or flank pain; Squamous Epithelial 0-3 HPF (0-3)
[2023-11-05 11:12] LABS: Urine Culture Reflex No No
[2023-11-05] MEDS ORDERED: Simethicone Chewable 80 MG TAB PO SCH (11:15)
[2023-11-05 11:30] LABS: ALT (SGPT) 9 U/L (8-55); AST (SGOT) 11 U/L (5-34); Albumin 3.8 g/dL (3.4-4.8); Alkaline Phosphatase 51 U/L (40-110); Anion Gap 21 mmol/L (10-20); BUN (Urea Nitrogen) 27 mg/dL (9.8-20.1); Bilirubin, Total 0.8 mg/dL (0.2-1.2); Calc. Creatinine Clearance 0 mL/min (70-130); Calcium 10.2 mg/dL (7.8-10.44); Carbon Dioxide 18 mmol/L (23-31); Chloride 98 mmol/L (98-107); Estimated GFR 38; Globulin 3.1 g/dL (2.4-3.5); Glucose 193 mg/dL (83-110); Lipase 16 U/L (8-78); Potassium 4.3 mmol/L (3.5-5.1); Protein, Total 6.9 g/dL (5.8-8.1); Sodium 133 mmol/L (136-145)
[2023-11-05] MEDS ORDERED: Bisacodyl 10 MG SUPP ONE (11:34)
[2023-11-05] MEDS ORDERED: LevoFLOXacin D5W 500 mg (100 mL) BAG ONE (12:48)
[2023-11-05] MEDS ORDERED: Sodium Chloride 0.9% 250 ML 250 ML ONE (12:49)
[2023-11-05] MEDS ORDERED: diphenhydrAMINE 50 MG/ML VIAL ONE (13:33)
== END 2023-11-05 14:05 | disposition home or self-care (01) ==
LOC: NAV ERS 10:09
DX: K57.32 Diverticulitis of large intestine without perforation or abscess without bleeding (principal); D64.9 Anemia, unspecified; I12.9 Hypertensive chronic kidney disease with stage 1 through stage 4 chronic kidney disease, or unspecified chronic kidney disease; E11.22 Type 2 diabetes mellitus with diabetic chronic kidney disease; N18.30 Chronic kidney disease, stage 3 unspecified; E78.00 Pure hypercholesterolemia, unspecified; K21.9 Gastro-esophageal reflux disease without esophagitis; Z79.899 Other long term (current) drug therapy; Z79.82 Long term (current) use of aspirin; Z79.84 Long term (current) use of oral hypoglycemic drugs
CPT/HCPCS: 74176; 80053; 81001; 82274; 83690; 85025; 96361; 96365; 96375; J1200; J1956; J7030; J7050